=== PATIENT | female | born 1990 | race Caucasian/White ===

== ENCOUNTER 2017-07-01 09:46 | Emergency (ER) | payer MEDICAID ==
[2017-07-01 10:18] VITALS: BP 102/73
--- NOTE | 2017-08-06 07:33 | UC ---
Augie Taylor Nikita, scribed for Meliza Orellana DO on 07/01/17 at 1125 . Headache HPI - HPI Summary HPI Summary: This patient is a 26 year old F presenting to [facility] with a chief complaint of upper L MISHRA since 5 days ago. Pt reports an episode of severe MISHRA last night ( rates 9/10). The CC is described as intermittent (lasting 1 hour). The pt rates the pain 6/10 in severity at onset. Currently, pain rates 1/10. Symptoms aggravated by nothing. Symptoms alleviated by nothing (pt saw OB provider 2 days ago; Rx Zithromax and Loratadine did not alleviate pain). Patient reports rhinorrhea (L naris), watery drainage in L eye, dizziness, diaphoresis, contractions ([place]), and constipation. Patient denies fever, chills, sore throat, ear ache, cough, N/V, abdominal pain, unusual swelling, and vision changes. Pt is 39 weeks (). - History Of Current Complaint Chief Complaint: UCHeadache Stated Complaint: HEADACHE Hx Obtained From: Patient ?: Yes Onset/Duration: Sudden Onset - 5 days ago, Lasting Days, Still Present Onset Of Symptoms: Sudden, Still Present Initially Headache Was: Initial Pain Scale(0-10)= - 6/10 Currently Pain Is: Current Pain Scale(0-10)= - 1/10, Mild Pain Intensity: 6 Pain Scale Used: 0-10 Numeric Timing: Intermittent, Lasting: - 1 hour Location of Headache: Other: - upper L side Aggravating Factor: Nothing Allevating Factors: Nothing Associated Signs And Symptoms: Positive: Other (Noted In Comments) - Patient reports rhinorrhea (L naris), watery drainage in L eye, dizziness, diaphoresis, contractions ([place]), and constipation. Patient denies fever, chills, sore throat, ear ache, cough, N/V, abdominal pain, unusual swelling, and vision changes. Related History: Similar Episode/DX As: - Last night was the worst episode (9/10 ) - Allergies/Home Medications Allergies/Adverse Reactions: Allergies Allergy/AdvReac Type Severity Reaction Status Date / Time No Known Allergies Allergy Verified 04/02/17 23:18 Home Medications: Home Medications Azithromycin TAB* [Zithromax TAB (Z-JAIRO) 250 mg #6 tabs] 250 mg PO DAILY [History Confirmed 07/01/17] Loratadine 10 mg PO 07/01/17 [History] guaiFENesin ER TAB [Mucinex*] 600 mg PO BID 07/01/17 [History Confirmed 07/01/17 ] PMH/Surg Hx/FS Hx/Imm Hx Other Endocrine History: Denies DM Other Cardiovascular History: Denies CAD and HTN - Surgical History Surgical History: None - Family History Known Family History: Positive: Diabetes Negative: Cardiac Disease, Hypertension - Social History Alcohol Use: None Substance Use Type: None Smoking Status (MU): Never Smoked Tobacco Have You Smoked in the Last Year: No Review of Systems Constitutional: Other - diaphoresis; Denies fever, chills Eyes: Drainage - Watery in L eye, Other - denies vision changes ENT: Nasal Discharge - rhinorrhea in L naris, Other - Denies sore throat, ear ache Respiratory: Other - denies cough Gastrointestinal: Other - constipation; denies abdominal pain, N/V Genitourinary: Other - contractions ([place]) Musculoskeletal: Other: - denies unusual swelling Neurological: Headache - upper L side, Other - Dizziness All Other Systems Reviewed And Are Negative: Yes Physical Exam Triage Information Reviewed: Yes Vital Signs: Initial Vital Signs Temp 97.6 F 07/01/17 10:11 Pulse 95 07/01/17 10:11 Resp 16 07/01/17 10:11 BP 102/73 07/01/17 10:11 Pulse Ox 99 07/01/17 10:11 - Additional Comments Appearance: Well-Appearing, No Pain Distress, Well-Nourished Eyes: conjunctiva clear, negative: discharge. Allergic shiners. ENT: Hearing grossly normal, Negative: Muffled/hoarse voice. Pale and boggy nasal mucosa. Mild frontal sinus tenderness. Neck: Normal, Supple Respiratory/Lung Sounds: Lungs clear, Normal breath sounds, No respiratory distress, No accessory muscle use Cardiovascular: RRR, No murmur Musculoskeletal: Normal Neurological: Alert, muscle tone normal Psychiatric: Normal, age appropriate behavior Skin: Normal, other -- Warm, Dry, Normal color Headache Course/Dx - Course Course Of Treatment: This patient is a 26 year old F presenting to [facility] with a chief complaint of upper L MISHRA since 5 days ago. Pt reports an episode of severe MISHRA last night (rates 9/10). The CC is described as intermittent (lasting 1 hour) . The pt rates the pain 6/10 in severity at onset. Currently, pain rates 1/10. Symptoms aggravated by nothing. Symptoms alleviated by nothing (pt saw OB provider 2 days ago; Rx Zithromax and Loratadine did not alleviate pain). Patient reports rhinorrhea (L naris), watery drainage in L eye, dizziness, diaphoresis, contractions ([place]), and constipation. Patient denies fever, chills, sore throat, ear ache, cough, N/V, abdominal pain, unusual swelling, and vision changes. Pt is 39 weeks (). heart tones is 138. Medications reviewed this visit. Pt will be discharged. Pt is agreeable with this plan. - Differential Dx/Diagnosis Provider Diagnoses: Sinusitis and allergies. Discharge - Discharge Plan Condition: Stable Disposition: HOME Patient Education Materials: Sinusitis (ED), Allergies (ED) Referrals: Nemo Palm CNM [Primary Care Provider] - 2 Days Additional Instructions: Today is day 3 of treatment. You have had 2 doses of antibiotic thus far. It usually takes at least 2 days of treatment before antibiotics start to show benefit. Last night you had a bad headache but your symptoms are mild today. It may be that your symptoms are starting to respond to antibiotic therapy and you will continue to improve. If so, continue with current therapy. If the bad headache returns, you should go to the ED for further evaluation. TRY USING THE NETI POT IN THE MORNINGS DISCUSSED. YOU MUST ALWAYS USE CLEAN WATER. REMEMBER, POSTURE IS AN IMPORTANT FACTOR IN SINUS DRAINAGE. MOVE YOUR NECK, BREATHE. Continue current therapy as directed by your stapler hand: Claritin for allergy symptoms. Acetaminophen is ok for pain in as long as you do not exceed maximum daily dose. AZITHROMYCIN: Azithromycin (Zithromax) is a broad spectrum antibiotic in the same class as erythromycin. It can treat a variety of bacterial infections, but is most frequently used for respiratory infections. Azithromycin is extremely long-lasting. It accumulates in body tissues and continues to kill bacteria for many days. In order to improve absorption, Azithromycin should be taken at least one hour before or two hours after a meal. It does not have the same strong tendency to upset the stomach as erythromycin and is usually very well tolerated. Patients who have had a rash or other true allergic reactions to erythromycin should not take this medication. Call if you develop gastrointestinal distress, severe diarrhea, rash, hives, itching, or shortness of breath. ANYTIME YOU TAKE AN ANTIBIOTIC, IT IS IMPORTANT TO REPLENISH THE BODY'S SUPPLY OF "GOOD BACTERIA." YOU CAN GET GOOD BACTERIA FROM HIGH QUALITY CULTURED FOODS SUCH LOCAL YOGURT, SOUR KRAUT, ORVILLE LORRIE, NATURALLY FERMENTED PICKLES AND PROBIOTIC DRINKS. YOU CAN ALSO GET GOOD BACTERIA FROM A PROBIOTIC SUPPLEMENT. The documentation as recorded by the Augie paulino Nikita accurately reflects the service I personally performed and the decisions made by me, Meliza Orellana DO.
== END 2017-07-01 11:57 | disposition home or self-care (01) ==
LOC: UCEAST 09:46
DX: J32.9 Chronic sinusitis, unspecified (principal); H57.8 Other specified disorders of eye and adnexa; R42 Dizziness and giddiness; O47.1 False labor at or after 37 completed weeks of gestation; Z3A.39 39 weeks gestation of pregnancy; K59.00 Constipation, unspecified
CPT/HCPCS: 81003; 87086; 99211; G0463

== ENCOUNTER 2017-07-14 08:20 | Inpatient (IN) | payer MEDICAID ==
[2017-07-14] MEDS ORDERED: Oxytocin in LR* 0 UNITS/0 ML BAG IVPB ONE (16:26)
[2017-07-14] MEDS ORDERED: Glycerin ADULT SUPP PR PRN (16:48)
[2017-07-14] MEDS ORDERED: Acetaminophen TAB* 325 MG PO PRN (16:48)
[2017-07-14] MEDS: Dibucaine 1% 28.35 GM TUBE PR PRN (18:22)
[2017-07-14] MEDS: Ibuprofen TAB* 600 MG PO PRN (18:22)
[2017-07-14] MEDS: Witch Hazel PAD* JAR TOPICAL PRN ×2 (18:22→18:23)
[2017-07-14] MEDS: Simethicone TAB* 80 MG TAB.CHEW PO SCH ×2 (22:08→22:09)
[2017-07-15] MEDS: Docusate CAP* 100 MG PO SCH ×4 (00:34→22:12)
[2017-07-15] MEDS: Ibuprofen TAB* 600 MG PO PRN ×3 (00:34→19:58)
[2017-07-15] MEDS ORDERED: Ferrous Gluconate TAB* 324 MG TAB PO SCH (09:00)
[2017-07-15 09:28] LABS: Hematocrit 34 % (35-47); Hemoglobin 11.7 g/dl (12.0-16.0); Mean Corpuscular HGB Conc 34 g/dl (31-36); Mean Corpuscular Hemoglobin 31 pg (27-31); Mean Corpuscular Volume 90 fL (80-97); Mean Platelet Volume 9 um3 (7.4-10.4); Red Blood Count 3.81 10^6/ul (4.0-5.4); Red Cell Distribution Width 13 % (10.5-15)
[2017-07-16 07:51] VITALS: BP 95/51
[2017-07-16] MEDS: Ibuprofen TAB* 600 MG PO PRN (07:53)
[2017-07-16] MEDS: Docusate CAP* 100 MG PO SCH (09:14)
[2017-07-16] MEDS: Witch Hazel PAD* JAR TOPICAL PRN (09:15)
[2017-07-16] MEDS: Dibucaine 1% 28.35 GM TUBE PR PRN (09:15)
--- NOTE | 2017-07-16 10:29 | PTEDU ---
Patient Name: ZACKERY MUNGUIA ZACKERY MUNGUIA selected video: Never Ever Shake a Baby to view on 07/16/2017 at 10:27:[address] [id number]
== END 2017-07-16 12:15 | disposition home or self-care (01) | DRG 560 ==
LOC: MCHOBOUT 08:20 → MCHOB 08:38
PROVIDERS: ADMIT Midwife; ATTEND Midwife
PROC: 10E0XZZ Delivery of Products of Conception, External Approach (ICD-10-PCS; principal; 2017-07-14)
PROC: 10907ZC Drainage of Amniotic Fluid, Therapeutic from Products of Conception, Via Natural or Artificial Opening (ICD-10-PCS; 2017-07-14)
PROC: 0KQM0ZZ Repair Perineum Muscle, Open Approach (ICD-10-PCS; 2017-07-14)
DX: O48.0 Post-term pregnancy (principal); O69.81X0 Labor and delivery complicated by cord around neck, without compression, not applicable or unspecified; O69.89X0 Labor and delivery complicated by other cord complications, not applicable or unspecified; O70.1 Second degree perineal laceration during delivery; Z3A.41 41 weeks gestation of pregnancy; Z37.0 Single live birth
CPT/HCPCS: 36415; 85025; A9270-GY

== ENCOUNTER 2019-08-21 20:28 | Emergency (ER) | payer MEDICAID, OTHER ==
[2019-08-21] MEDS ORDERED: Ibuprofen TAB* 600 MG PO ONE (20:53)
[2019-08-21 20:58] VITALS: BP 116/67
[2019-08-21] MEDS ORDERED: DOXYcycline CAP(*) 100 MG PO ONE ×2 (21:07)
--- NOTE | 2019-08-21 21:08 | UC ---
HPI Febrile Illness - HPI Summary HPI Summary: 28-year-old female comes in with a chief complaint of upper respiratory tract infection symptoms for one week. She's had yellow rhinorrhea and Cough. Denies a sore throat. 3 days ago she started getting worse with fevers and body aches. She does have a cough but she she has no complaint of chest congestion. No diarrhea no urinary symptoms. - History of Current Complaint Chief Complaint: UCRespiratory Time Seen by Provider: 08/21/19 20:38 Hx Last Menstrual Period: unknown- MIRENA Pain Intensity: 0 - Allergy/Home Medications Allergies/Adverse Reactions: Allergies Allergy/AdvReac Type Severity Reaction Status Date / Time No Known Allergies Allergy Verified 08/21/19 21:03 Home Medications: Home Medications D-Methorphan/PE/Acetaminophen [Tylenol Cold Multi-Symp Caplet] 1 each PO Q12H PRN 08/21/19 [History Confirmed 08/21/19] GuaiFENesin DM* [Robitussin DM*] 5 ml PO Q6H PRN 08/21/19 [History Confirmed 04/03] Levonorgestrel (Iud) [Mirena IUD] 0 mcg 08/21/19 [History] PMH/Surg Hx/FS Hx/Imm Hx Previously Healthy: Yes - Surgical History Surgical History: Yes Surgery Procedure, Year, and Place: APPY - Family History Known Family History: Positive: Non-Contributory - Social History Alcohol Use: None Substance Use Type: None Smoking Status (MU): Never Smoked Tobacco Have You Smoked in the Last Year: No - Immunization History Most Recent Influenza Vaccination: has not yet received this Season Most Recent Pneumonia Vaccination: None Review of Systems All Other Systems Reviewed And Are Negative: Yes Constitutional: Positive: Fever, Other - see hpi Skin: Positive: Negative Eyes: Positive: Negative ENT: Positive: Nasal Discharge, Sinus Congestion Respiratory: Positive: Cough Cardiovascular: Positive: Negative Gastrointestinal: Positive: Negative Genitourinary: Positive: Negative Motor: Positive: Negative Neurovascular: Positive: Negative Musculoskeletal: Positive: Myalgia Neurological: Positive: Negative Psychological: Positive: Negative Is Patient Immunocompromised?: No Physical Exam Triage Information Reviewed: Yes Appearance: No Pain Distress, Well-Nourished, Ill-Appearing - mild Vital Signs: Initial Vital Signs Temp 104.9 F 08/21/19 20:55 Pulse 113 08/21/19 20:55 Resp 20 08/21/19 20:55 BP 116/67 08/21/19 20:55 Pulse Ox 98 08/21/19 20:55 Vital Signs Reviewed: Yes Eye Exam: Normal Eyes: Positive: Conjunctiva Clear ENT: Positive: Pharyngeal erythema, Nasal congestion, Nasal drainage, TMs normal Neck: Positive: Supple Respiratory: Positive: Lungs clear, No respiratory distress, Other: - dry cough Cardiovascular: Positive: Tachycardia Musculoskeletal: Positive: Strength Intact, ROM Intact Neurological: Positive: Alert Psychological: Positive: Age Appropriate Behavior Skin Exam: Normal Course/Dx - Course Course Of Treatment: Influenza swab was negative. Patient's had more than 10 days of symptoms which are worsening with a high fever. Difficult to tell sources sinus or chest. Denies any urinary symptoms or abdominal symptoms. Recommended treating with ibuprofen for fever and bodyaches and treating with doxycycline for either sinusitis or respiratory infection. Patient's to get reevaluated if worsening or not improving. - Diagnoses Provider Diagnosis: Upper respiratory infection, Fever Discharge ED - Sign-Out/Discharge Documenting (check all that apply): Patient Departure All imaging exams completed and their final reports reviewed: No Studies - Discharge Plan Condition: Stable Disposition: HOME Prescriptions: DOXYcycline CAP(*) [DOXYcycline 100MG CAP(*)] 100 mg PO BID #18 cap Patient Education Materials: Fever in Adults (ED), Upper Respiratory Infection (ED) Referrals: [facility] [Outside] Additional Instructions: FOLLOW UP WITH YOUR DOCTOR IF NOT COMPLETELY IMPROVED. TAKE IBUPROFEN 600MG EVERY 6 HOURS NEEDED FOR FEVER AND/OR BODY ACHES. GET RECHECKED SOONER IF WORSE OR ANY QUESTIONS OR CONCERNS. - Billing Disposition and Condition Condition: STABLE Disposition: Home
[2019-08-21 21:14] LABS: Influenza A Molecular NEGATIVE (Negative); Influenza B Molecular NEGATIVE (Negative)
== END 2019-08-21 21:30 | disposition home or self-care (01) ==
LOC: UCEAST 20:28
DX: J06.9 Acute upper respiratory infection, unspecified (principal); R50.9 Fever, unspecified; M79.10 Myalgia, unspecified site
CPT/HCPCS: 99213; A9270-GY; G0463